=== PATIENT | male | born 2000 | race Caucasian/White ===

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

== ENCOUNTER 2025-04-11 19:23 | Emergency (ER) | payer OTHER ==
[~2025-04-11] VITALS: Ht 175.3 cm; Wt 81.8 kg
[2025-04-11] MEDS: LIDOCAINE 1% 10 ML VIAL ID ONE (23:07)
[2025-04-12 01:23] VITALS: BP 129/73; PULSE 89; RESP 17; TEMP 98.3; O2SAT 98
== END 2025-04-12 02:45 | disposition home or self-care (01) ==
LOC: EMS 19:23
DX: S01.81XA Laceration without foreign body of other part of head, initial encounter (principal); Z98.890 Other specified postprocedural states; X58.XXXA Exposure to other specified factors, initial encounter; Y93.89 Activity, other specified; Y92.89 Other specified places as the place of occurrence of the external cause; Y99.8 Other external cause status
CPT/HCPCS: 99282; 12011; J3490

== ENCOUNTER 2025-04-17 11:47 | Emergency (ER) | payer OTHER ==
[~2025-04-17] VITALS: Ht 175.3 cm; Wt 81.8 kg
[2025-04-17 11:59] VITALS: TEMP 98
[2025-04-17 12:01] VITALS: BP 126/66; PULSE 84; RESP 18; O2SAT 98
== END 2025-04-17 12:58 | disposition home or self-care (01) ==
LOC: EMS 11:47
DX: S01.81XD Laceration without foreign body of other part of head, subsequent encounter (principal); Z98.890 Other specified postprocedural states; X58.XXXD Exposure to other specified factors, subsequent encounter
CPT/HCPCS: 99282; Z7502